=== PATIENT | female | born 1990 | race Caucasian/White ===

== ENCOUNTER 2020-05-12 07:19 | Emergency (ER) | payer OTHER ==
[2020-05-12 07:59] LABS: BASOPHIL 0.4 % (0-2); EOSINOPHIL 0.6 % (0-5); HGB 12.7 g/dl (12.5-16.0); MCH 30.4 pg (25.0-31.0); MCHC 33.4 g/dL (32.0-36.0); MCV 90.9 fL (78.0-100.0); MONOCYTE 7.9 % (0-12); NEUTROPHIL 70.8 % (41-80); NRBC 0; PLT 265 K/uL (150-400); RBC 4.18 M/uL (4.20-5.40); RDW 13.3 % (11.5-14.0); WBC 10.5 K/uL (4.0-10.5)
[2020-05-12 08:13] LABS: ALBUMIN 3.8 g/dL (3.4-5.0); BILIRUBIN - TOTAL 0.5 mg/dL (0.2-1.0); BUN/CREAT RATIO (CALC) 12.8 RATIO; CREATININE 0.86 mg/dL (0.51-0.95); GLOBULIN (CALCULATION) 3.8 g/dL; POTASSIUM 3.8 mmol/L (3.5-5.1); TOTAL PROTEIN 7.6 g/dL (6.4-8.2)
[2020-05-12] MEDS ORDERED: ACIPHEX20 MG PO (09:34)
== END 2020-05-12 10:30 | disposition home or self-care (01) ==
LOC: EDBD 07:19 → FER 07:19
PROVIDERS: Emergency Medicine
DX: K21.9 Gastro-esophageal reflux disease without esophagitis (principal); R07.89 Other chest pain; Z88.2 Allergy status to sulfonamides; Z98.890 Other specified postprocedural states
CPT/HCPCS: 36415; 71045; 80053; 84484; 85025; 85730; 93005